=== PATIENT | male | born 1975 | race Caucasian/White ===

== ENCOUNTER 2017-02-25 17:53 | Emergency (ER) | payer BC ==
[2017-02-25 18:00] VITALS: BP 135/97
[2017-02-25] MEDS ORDERED: DIPHTH,PERTUSS(ACELL),TET TOX 0.5 ML DISP.SYRIN. VAX IM ONE (19:00)
[2017-02-25] MEDS ORDERED: NAPROXEN 500 MG TABLET PO ONE (19:00)
--- NOTE | 2017-02-25 19:11 | ED.ADGEN ---
Adult General [facility] HPI Patient is a 41-year-old man, with no significant past medical history, who presents to the emergency department with a complaint of left arm pain. Patient states that he [place] and fell striking his arm on a concrete curb about an hour and a half ago, states he did not follow the ground and struck his arm against a concrete curb and since that time has felt sharp shooting pain radiating along his entire arm. He denies any previous injuries, or any other injuries that occurred with this incident, has not taken any medication prior to coming to the ED, states that his last tetanus is more than 10 years ago. Patient is right handed. Review of Systems Review of Systems Constitutional: Denies fever or chills [] Eyes: Denies change in visual acuity, redness, or eye pain [] HENT: Denies nasal congestion or sore throat [] Respiratory: Denies cough or shortness of breath [] Cardiovascular: No additional information not addressed in HPI [] GI: Denies abdominal pain, nausea, vomiting, bloody stools or diarrhea [] : Denies dysuria or hematuria [] Musculoskeletal: Denies back pain, pain in the left forearm. Integument: Denies rash or skin lesions [] Neurologic: Denies headache, focal weakness or sensory changes [] Endocrine: Denies polyuria or polydipsia [] Current Medications Current Medications Current Medications Medications (Trade) Dose Ordered Sig/Renzo Start Time Stop Time Status Last Admin Dose Admin Diphtheria/ Tetanus/Acell Pertussis (Boostrix) 0.5 ml ONCE ONCE 02/25/17 19:00 02/25/17 19:01 DC 02/25/17 18:45 0.5 ML Naproxen (Naprosyn) 500 mg 1X ONCE 02/25/17 19:00 02/25/17 19:01 DC 02/25/17 18:45 500 MG Allergies Allergies Allergies Coded Allergies Type Severity Reaction Last Updated Verified No Known Drug Allergies 02/25/17 No Physical Exam Physical Exam Constitutional: Well developed, well nourished, no acute distress, non-toxic appearance. [] HENT: Normocephalic, atraumatic, bilateral external ears normal, oropharynx moist, no oral exudates, nose normal. [] Eyes: PERRLA, EOMI, conjunctiva normal, no discharge. [] Neck: Normal range of motion, no tenderness, supple, no stridor. [] Cardiovascular:Heart rate regular rhythm, no murmur, S1, S2, rubs or gallops. [] Lungs & Thorax: Bilateral breath sounds clear to auscultation, no wheezing, rhonchi, rales. No chest or crepitus or tenderness. [] Abdomen: Bowel sounds normal, soft, no tenderness, no rebound, rigidity, no guarding, no masses, no pulsatile masses. [] Skin: Warm, dry, no erythema, no rash. [] Back: No tenderness, no CVA tenderness. [] Extremities: Patient with a [place] area of abrasion along the medial aspect of his left upper extremity, in the midshaft region, with a small amount of soft tissue swelling, no bony point tenderness or crepitus, patient with full range of motion that is painless and hand, wrist, elbow and shoulder, states that the pain is "nervelike", and radiates along the entire forearm especially with motion, but does have full active and passive range of motion, no cyanosis, no clubbing, ROM intact, no edema. [] Neurologic: Alert and oriented X 3, normal motor function, normal sensory function, no focal deficits noted. [] Psychologic: Affect normal, judgement normal, mood normal. [] EKG EKG [] Radiology/Procedures Radiology/Procedures Left left forearm: 2 view: No fracture or subluxation, no soft tissue or bony abnormality is identified. As interpreted by me. [] Course & Med Decision Making Course & Med Decision Making Pertinent Labs and Imaging studies reviewed. (See chart for details) Patient with full range of motion of the arm, x-ray obtained to rule out occult injury which did not reveal any evidence of bony abnormality. Patient's abrasion was cleaned and antibiotic was applied along with a dressing in the ED , ice pack was also applied, patient received naproxen in the ED, and a booster to update his tetanus. Did discuss with patient that the symptoms here experiencing are consistent with ulnar nerve distribution, that he has some swelling in the area which is likely causing this discomfort, and it should resolve as the swelling improves. We discussed concerning symptoms that prompt return to the ED for additional evaluation, patient voiced understanding and agreement, discharged home in stable condition with instructions to continue anti-inflammatory medications, elevation, ice, rest, and to return for concerning symptoms as discussed. Final Impression Final Impression [] Problems: Dragon Disclaimer Dragon Disclaimer This electronic medical record was generated, in whole or in part, using a voice recognition dictation system. Departure: Impression: Primary Impression: Contusion of left arm Disposition: 01 HOME, SELF-CARE Condition: IMPROVED COLBY LINDA DO Feb 25, 2017 19:11
--- NOTE | 2017-02-26 08:20 | RAD ---
Indication: Fall and injured arm 2 hours ago. Pain radiates down from shoulder. Technique: 2 views of the left forearm are submitted for review. No comparison is available. Findings: There is no fracture or osseous lesion. There is no radiopaque foreign body or definite soft tissue swelling. Impression: Negative for fracture.
== END 2017-02-25 19:02 | disposition home or self-care (01) ==
LOC: ER 17:53
DX: S40.022A Contusion of left upper arm, initial encounter (principal); W01.198A Fall on same level from slipping, tripping and stumbling with subsequent striking against other object, initial encounter; Y93.89 Activity, other specified; Y99.8 Other external cause status; Y92.89 Other specified places as the place of occurrence of the external cause
CPT/HCPCS: 73090; 90471; 90715; 99284-25